=== PATIENT | male | born 1995 | race Caucasian/White ===

== ENCOUNTER 2017-08-10 03:05 | Emergency (ER) | payer OTHER ==
[~2017-08-10] VITALS: Ht 175.3 cm; Wt 86.3 kg
[2017-08-10] MEDS ORDERED: LIDOCAINE 1% SDV INJ 30 ML VIAL SC SCH (05:00)
[2017-08-10] MEDS ORDERED: LIDOCAINE 1% MDV 20ML VIAL SC SCH (05:00)
[2017-08-10] MEDS ORDERED: DERMABOND TOPICAL SKIN ADHESIVE TOP ONE (05:30)
[2017-08-10 05:44] VITALS: BP 130/75
== END 2017-08-10 05:47 | disposition home or self-care (01) ==
LOC: M ED 03:05
DX: S01.81XA Laceration without foreign body of other part of head, initial encounter (principal); Z72.0 Tobacco use; Y04.0XXA Assault by unarmed brawl or fight, initial encounter; Y92.89 Other specified places as the place of occurrence of the external cause; Y93.89 Activity, other specified; Y99.9 Unspecified external cause status

== ENCOUNTER 2017-08-15 07:12 | Emergency (ER) | payer OTHER ==
[~2017-08-15] VITALS: Ht 175.3 cm; Wt 86.4 kg
[2017-08-15] MEDS ORDERED: IBUP-1114 PO (07:20)
[2017-08-15] MEDS ORDERED: ONDANSETRON 4MG/2ML VIAL (J2405) IV ONE (07:30)
[2017-08-15] MEDS ORDERED: NS 1,000 ML IV ONE (07:30)
[2017-08-15] MEDS ORDERED: KETOROLAC 30 MG/ML VIAL (J1885) IV ONE (07:30)
[2017-08-15 07:50] LABS: BASO % 0.3 % (0.0-1.0); EOS # 0.1 10^3/uL (0.0-0.50); IMMATURE GRANULOCYTE % 0.2 % (0-0); LYMPH # 1.3 10^3/uL (1.5-6.5); LYMPH % 15.5 % (24.0-44.0); MEAN CORPUSCULAR HEMOGLOBIN 32.2 pg (27.0-33.0); MEAN CORPUSCULAR HGB CONC 35.4 g/dl (32.0-36.5); MONO # 0.7 10^3/uL (0.0-0.8); MONO % 7.5 % (0.0-5.0); NEUTROPHILS # 6.5 10^3/uL (1.8-7.7); NEUTROPHILS % 75.5 % (36.0-66.0); PLATELET COUNT, AUTOMATED 193 10^3/uL (150-450); RED CELL DISTRIBUTION WIDTH 12.5 % (11.5-14.5); WHITE BLOOD COUNT 8.6 10^3/uL (4.0-10.0)
[2017-08-15] MEDS ORDERED: GASTROGRAFIN SOLUTION 30ML PO ONE (07:50)
[2017-08-15 08:15] LABS: ALBUMIN 3.7 GM/DL (3.2-5.2); ALBUMIN/GLOBULIN RATIO 0.93 (1.00-1.93); BILIRUBIN,TOTAL 0.8 MG/DL (0.2-1.0); CALCIUM LEVEL 9.2 MG/DL (8.5-10.1); CREATININE FOR GFR 1.67 MG/DL (0.70-1.30); GLOMERULAR FILTRATION RATE 54.5 (>60); POTASSIUM SERUM 4.3 MEQ/L (3.5-5.1); TOTAL PROTEIN 7.7 GM/DL (6.4-8.2)
[2017-08-15] MEDS ORDERED: GASTROGRAFIN SOLUTION 30ML (Q9963) PO ONE (08:20)
[2017-08-15] MEDS ORDERED: ISOVUE-370 76% 100ML VIAL (Q9967) As Ordered ONE (09:03)
--- NOTE | 2017-08-15 09:33 | REP ---
Clinical: Lower abdominal pain with nausea and vomiting. Findings: Lung bases are clear. Visualized heart and pericardium normal. Liver, spleen, pancreas, gallbladder, bilateral adrenal glands and kidneys are normal for noncontrast evaluation. The enteric system is without obstruction or acute inflammatory process and a normal terminal ileum and appendix are identified in the right lower quadrant. Pelvis demonstrates normal bladder and age appropriate prostate/seminal vesicles. Scattered sigmoid diverticula noted without acute diverticulitis. A small amount of free fluid is identified in the pelvis which is of uncertain etiology but relatively atypical in the male population. No free air. No adenopathy. No obvious solitary mass lesion. Musculoskeletal structures are intact. Impression: 1. Small amount of free fluid in the pelvis is of uncertain etiology and warrants correlation. 2. Otherwise normal noncontrast CT of the abdomen and pelvis. Signed by Billy Valenzuela MD 08/15/2017 09:26 A
[2017-08-15] MEDS ORDERED: NORCOTAB PO ×2 (09:37→09:43)
[2017-08-15] MEDS ORDERED: ZOFR4TAB3 PO (09:37)
[2017-08-15] MEDS ORDERED: MORPHINE 4 MG/ML 1ML SYRINGE IV ONE (09:45)
[2017-08-15 10:06] VITALS: BP 153/84
--- NOTE | 2017-08-15 10:23 | ED PDOC ---
Post-Departure Follow-Up SPOKE WITH WILMA AT THIS TIME, A NURSE AT THE PRIMARY CARE OFFICE OF [facility]. I CALLED TO EXPLAIN THAT THE PERSON WHO PRESENTED WITH THIS PT TODAY ( PT IS ACTIVE DUTY), STATED HE WAS A MEDIC. THIS PERSON WAS SEEN GOING THROUGH THE IV CARTS IN THE DEPARTMENT AND TOOK THE PATIENT'S IV OUT PRIOR TO THE NURSING STAFF GOING IN THE ROOM TO DISCHARGE THIS PT. WHEN SPEAKING WITH WILMA, ADVISED THAT THIS BEHAVIOR WAS INAPPROPRIATE AND OVERSTEPPED THE BOUNDARIES OF THIS DEPARTMENT. WILMA IN AGREEMENT AND STATED SHE WOULD INFORM THE PROVIDER FOR THE PT'S UNIT AND THIS WOULD BE ADDRESSED. JOANIE SANTANA PA-C Aug 15, 2017 10:23
== END 2017-08-15 10:09 | disposition home or self-care (01) ==
LOC: M ED 07:12
DX: R10.9 Unspecified abdominal pain (principal); R11.2 Nausea with vomiting, unspecified
CPT/HCPCS: 74176; 80053; 81001; 81002; 85025; 86140; 96374; 96375; 99284; J1885; J2405; Q9963

== ENCOUNTER 2017-11-30 20:19 | Emergency (ER) | payer OTHER ==
[2017-11-30] MEDS: NORCO 5/325MG TABLET (BULK FOR ED) PO (21:00)
[2017-11-30] MEDS: CLINDAMYCIN 150 MG CAP PO (21:00)
== END 2017-11-30 21:07 | disposition home or self-care (01) ==
LOC: M ED 20:19
DX: L02.416 Cutaneous abscess of left lower limb (principal); F17.210 Nicotine dependence, cigarettes, uncomplicated
CPT/HCPCS: 99282

== ENCOUNTER 2017-12-04 18:53 | Emergency (ER) | payer OTHER | END 2017-12-04 23:56 | disposition home or self-care (01) | LOC: M ED 18:53 | DX: L03.112 Cellulitis of left axilla (principal); A49.02 Methicillin resistant Staphylococcus aureus infection, unspecified site | CPT/HCPCS: 76882 ==

== ENCOUNTER 2018-02-16 22:31 | Emergency (ER) | payer OTHER | END 2018-02-17 00:48 | disposition home or self-care (01) | LOC: M ED 22:31 | DX: S01.01XA Laceration without foreign body of scalp, initial encounter (principal); W22.09XA Striking against other stationary object, initial encounter; Y92.098 Other place in other non-institutional residence as the place of occurrence of the external cause | CPT/HCPCS: 70450 ==

== ENCOUNTER 2018-06-24 16:06 | Emergency (ER) | payer OTHER ==
[2018-06-24] MEDS: KETOROLAC TROMETHAMINE 10 MG TAB PO (18:28)
[2018-06-24] MEDS: NORCO, ANEXSIA 5/325MG TABLET (HYDROcodone/ACETAMINOPHEN) PO (18:29)
== END 2018-06-24 18:44 | disposition home or self-care (01) ==
LOC: M ED 16:06
DX: S90.32XA Contusion of left foot, initial encounter (principal); W22.8XXA Striking against or struck by other objects, initial encounter; Y92.39 Other specified sports and athletic area as the place of occurrence of the external cause; F17.200 Nicotine dependence, unspecified, uncomplicated
CPT/HCPCS: 73630

== ENCOUNTER 2019-05-28 14:12 | Emergency (ER) | payer OTHER ==
[~2019-05-28] VITALS: Ht 175.3 cm; Wt 82.7 kg
[2019-05-28 14:12] VITALS: BP 133/75
[~2019-05-28 14:12] MED LIST: BACT800T5 PO; CLEO300C2 PO; HYDR-3715 PO; IBUP-1022 PO; IBUP-1114 PO; KETO10TAB PO; PERC5TAB12 PO; ZOFR4TAB14 PO; diclofenac TOP; tylenol PO
[2019-05-28] MEDS ORDERED: ACET-683 PO (14:19)
[2019-05-28] MEDS ORDERED: NAPR-885 PO (14:19)
[2019-05-28] MEDS ORDERED: TRAM50TA2 PO (14:19)
[2019-05-28] MEDS ORDERED: PRED20TA PO (15:32)
== END 2019-05-28 15:39 | disposition home or self-care (01) ==
LOC: M ED 14:12
DX: M25.551 Pain in right hip (principal)

== ENCOUNTER → 2019-06-11 | Outpatient (CLI) | payer OTHER ==
[~2019-06-11] MED LIST changes: +ACET-683 PO; +CONRAY-43 43% 50ML VIAL (Q9960) As Ordered ONE; +LIDOCAINE 1% MDV 20ML VIAL As Ordered ONE; +NAPR-885 PO; +PRED20TA PO; +TRAM50TA2 PO; +TRIAMCINOLONE ACETONIDE SUSP 40 MG/ML VIAL (J3301) As Ordered ONE
--- NOTE | 2019-06-11 16:51 | REP ---
RIGHT HIP INJECTION The procedure was performed under the direct supervision of Dr. Light. The benefits and risks including but not limited to pain infection and bleeding and anaphylaxis were explained to the patient and informed consent was obtained. The right femoral neck was localized using fluoroscopic guidance. The skin was prepped and draped in a sterile fashion. 1% lidocaine was used as a local anesthetic. Using fluoroscopic guidance a 22-gauge spinal needle was inserted and advanced to the femoral neck. 0.5 ml of Conray 43 was injected to verify placement. 10 ml of a solution containing 9 ml of 1% Xylocaine and 1 ml of Kenalog 40 mg was injected. The needle was then removed. The patient tolerated the procedure well and there were no immediate complications. Less than 6 seconds of fluoro time was utilized for this procedure. Electronically Signed by LETA Goodson 06/11/2019 04:00 P Electronically Signed by Homer Light MD 06/11/2019 04:43 P
== END ==
LOC: M RADPRO 11:12
DX: M24.851 Other specific joint derangements of right hip, not elsewhere classified (principal)
CPT/HCPCS: 20610; 77002; J3301; Q9960

== ENCOUNTER 2019-08-06 16:40 | Emergency (ER) | payer OTHER ==
[~2019-08-06] VITALS: Ht 175.3 cm; Wt 79.1 kg
[~2019-08-06 16:40] MED LIST changes: -CONRAY-43 43% 50ML VIAL (Q9960) As Ordered ONE; -LIDOCAINE 1% MDV 20ML VIAL As Ordered ONE; -TRIAMCINOLONE ACETONIDE SUSP 40 MG/ML VIAL (J3301) As Ordered ONE
[2019-08-06 16:41] VITALS: BP 167/90
[2019-08-06] MEDS ORDERED: ONDA4TAB5 PO (16:57)
[2019-08-06] MEDS ORDERED: CELE1CAP9 PO (16:57)
[2019-08-06] MEDS ORDERED: OXYC1TAB23 PO (16:57)
[2019-08-06] MEDS ORDERED: NORC1TAB7 PO (17:19)
== END 2019-08-06 17:40 | disposition home or self-care (01) ==
LOC: M ED 16:40
DX: G89.18 Other acute postprocedural pain (principal); Z87.442 Personal history of urinary calculi